=== PATIENT | female | born 1990 | race Caucasian/White ===

== ENCOUNTER 2018-01-14 20:20 | Emergency (ER) | payer OTHER ==
--- NOTE | 2018-01-14 21:13 | ER Document Report ---
ED Medical Screen (RME) - General Chief Complaint: Blood pressure issues Stated Complaint: BLOOD PRESSURE ISSUES Time Seen by Provider: 01/14/18 21:09 Mode of Arrival: Ambulatory Information source: Patient Notes: Patient is a 27-year-old female who presents with chief complaint of high blood pressure and elevated heart rate. Patient reports that over the last 2-3 weeks she has been having a heart rate ranging from the 120s-130s by her manual count. Patient also reports that over the last 2-3 days she has been having elevated blood pressure, patient reports blood pressure earlier today was 132/ 101. Patient denies any previous diagnosis of attention. Patient reports that she was seen yesterday at the emergency department at [facility] after she had a episode where she became confused. Patient reports that she had a fairly comprehensive workup done there and reports that they told her everything was normal. Patient returns to the emergency department today after feeling a fluttering in her chest. Patient reports past medical history of anxiety, depression and ADHD. Exam: Patient is alert and oriented 4. Sounds clear to auscultation bilaterally, no wheezes no rhonchi. Manual pulse is 128, heart sounds normal. I have greeted and performed a rapid initial assessment of this patient. A comprehensive ED assessment and evaluation of the patient, analysis of test results and completion of the medical decision making process will be conducted by additional ED providers. Dictation of this chart was performed using voice recognition software; therefore, there may be some unintended grammatical errors. TRAVEL OUTSIDE OF THE [place] IN LAST 30 DAYS: No - Related Data Allergies/Adverse Reactions: lidocaine Allergy (Verified 01/14/18 20:23) Physical Exam - Vital signs Vitals: Temp Pulse Resp BP Pulse Ox 98.3 F 125 H 18 122/84 100 01/14/18 20:28 01/14/18 20:28 01/14/18 20:28 01/14/18 20:28 01/14/18 20:28 Course - Vital Signs Vital signs: Temp Pulse Resp BP Pulse Ox 98.3 F 125 H 18 122/84 100 01/14/18 20:28 01/14/18 20:28 01/14/18 20:28 01/14/18 20:28 01/14/18 20:28
--- NOTE | 2018-01-14 21:44 | EKG REPORT ---
SEVERITY:- OTHERWISE NORMAL ECG - SINUS TACHYCARDIA : Confirmed by: Gianna Baker MD 14-Jan-2018 21:44:00
[2018-01-14 22:01] LABS: ABSOLUTE MONOCYTES (AUTO) 0.4 10^3/uL (0.1-1.4); ABSOLUTE NEUT (AUTO) 6.3 10^3/uL (1.7-8.2); BASOPHILS % (AUTO) 0.5 % (0-2); EOSINOPHILS % (AUTO) 0.2 % (0-6); HEMATOCRIT 41.3 % (36.0-47.0); HEMOGLOBIN 14.4 g/dL (12.0-15.5); LYMPHOCYTES % (AUTO) 30.8 % (13-45); MEAN CORPUSCULAR HEMOGLOBIN 32.3 pg (27.0-33.4); MEAN CORPUSCULAR HGB CONC 34.9 g/dL (32.0-36.0); MEAN CORPUSCULAR VOLUME 93 fl (80-97); MONOCYTES % (AUTO) 4.1 % (3-13); PLATELET COUNT 233 10^3/uL (150-450); RED BLOOD COUNT 4.45 10^6/uL (3.72-5.28); SEGMENTED NEUTROPHILS % (AUTO) 64.4 % (42-78); TOTAL CELLS COUNTED % (AUTO) 100 %; WHITE BLOOD COUNT 9.8 10^3/uL (4.0-10.5)
[2018-01-14 22:08] LABS: APPEARANCE,URINE SLIGHTLY-CLOUDY; BILIRUBIN,URINE NEGATIVE (NEGATIVE); COLOR,URINE YELLOW; GLUCOSE, URINE NEGATIVE (NEGATIVE); KETONES,URINE NEGATIVE (NEGATIVE); LEUKOCYTE ESTERASE,URINE NEGATIVE (NEGATIVE); NITRITE,URINE NEGATIVE (NEGATIVE); PROTEIN,URINE 30 mg/dL (NEGATIVE); URINE SPECIFIC GRAVITY 1.021
[2018-01-14 22:16] LABS: ALANINE AMINOTRANSFERASE 24 U/L (9-52); ALBUMIN 4.5 g/dL (3.5-5.0); ALKALINE PHOSPHATASE 76 U/L (38-126); ANION GAP 14 (5-19); ASPARTATE AMINO TRANSFERASE 29 U/L (14-36); BILIRUBIN,DIRECT 0.4 mg/dL (0.0-0.4); BILIRUBIN,TOTAL 0.5 mg/dL (0.2-1.3); BLOOD UREA NITROGEN 10 mg/dL (7-20); CALCIUM 9.6 mg/dL (8.4-10.2); CARBON DIOXIDE 26 mmol/L (22-30); CHLORIDE 106 mmol/L (98-107); GLUCOSE 84 mg/dL (75-110); POTASSIUM 3.5 mmol/L (3.6-5.0); SODIUM 146.4 mmol/L (137-145); TOTAL PROTEIN 7.8 g/dL (6.3-8.2)
--- NOTE | 2018-01-14 22:52 | ER Document Report ---
ED General - General Chief Complaint: Blood pressure issues Stated Complaint: BLOOD PRESSURE ISSUES Time Seen by Provider: 01/14/18 21:09 Mode of Arrival: Ambulatory Notes: Patient is 27-year-old female presents with complaint of multiple complaints. She has kept a log of her complaints. She says all her symptoms have been ongoing for 2-3 weeks. First complaint is of palpitations. She says she feels like her heart is racing. She also mentions that she has had high blood pressure. She says her blood pressure is been in the 120s and 130s systolically. The high she saw was 140/101. She said she went to her new primary care doctor about this and she says that he did not seem concerned. She also complains of headaches, weakness, she says that she feels that sometimes her vision is coming and going, she says sometimes her legs are giving out. She denies chest pain. She denies shortness of breath. She denies leg pain or swelling. Most recent road trip was 7 months ago in June. No surgeries in the last year. Patient says that she does have a history of anxiety and panic. She is on medications for this. She says she has been taking her medications. She takes clonazepam, Vyvanse, Buspar. She is followed by [facility] for her psychiatric care. Denies any recent changes in her medications. TRAVEL OUTSIDE OF THE [place] IN LAST 30 DAYS: No - Related Data Allergies/Adverse Reactions: lidocaine Allergy (Verified 01/14/18 20:23) Past Medical History - General Information source: Patient - Social History Smoking Status: Unknown if Ever Smoked Frequency of alcohol use: None Drug Abuse: None Family History: Reviewed & Not Pertinent Review of Systems - Review of Systems Notes: My Normal Review Basic REVIEW OF SYSTEMS: CONSTITUTIONAL : Denies fever, chills, or sweats. Denies recent illness. EENT: Denies eye, ear, throat, or mouth pain or symptoms. Denies nasal or sinus congestion. CARDIOVASCULAR: Denies chest pain. Has palpitations RESPIRATORY: Denies cough, cold, or chest congestion. Denies shortness of breath, difficulty breathing, or wheezing. GASTROINTESTINAL: Denies abdominal pain. Denies nausea, vomiting, or diarrhea. GENITOURINARY: Denies difficulty urinating, painful urination, burning, frequency, or blood in urine. MUSCULOSKELETAL: Denies neck or back pain or joint pain or swelling. SKIN: Denies rash or skin lesions. NEUROLOGICAL: Says she sometimes feels confused.. Mental headache. Denies weakness or paralysis or loss of use of either side. Denies problems with gait or speech. Denies sensory or motor loss. PSYCHIATRIC: Anxiety ALL OTHER SYSTEMS REVIEWED AND NEGATIVE. Physical Exam - Vital signs Vitals: Temp Pulse Resp BP Pulse Ox 98.3 F 125 H 18 122/84 100 01/14/18 20:28 01/14/18 20:28 01/14/18 20:28 01/14/18 20:28 01/14/18 20:28 - Notes Notes: General Appearance: Well nourished, alert, cooperative, no acute distress, no obvious discomfort. Anxious on exam. Vitals: reviewed, See vital signs table. Head: no swelling or tenderness to the head Eyes: PERRL, EOMI, Conjuctiva clear Mouth: No decreasd moisture Lungs: No wheezing, No rales, No rhonci, No accessory muscle use, good air exchange bilaterally. Heart: Tachycardiac rate, Regular rythm, No murmur, no rub Abdomen: Normal BS, soft, No rigidity, No abdominal tenderness, No guarding, no rebound, no abdominal masses, no organomegaly Extremities: strength 5/5 in all extremities, good pulses in all extremities, no swelling or tenderness in the extremities, no edema. Skin: warm, dry, appropriate color, no rash Neuro: speech clear, oriented x 3, normal affect, responds appropriately to questions. Renal nerves II through XII are intact. Distal sensation intact. Patient moves all extremities without difficulty. Psychiatric: Patient is very anxious. She has some pressured speech. When I go to listen to her heart she starts to hyperventilate. She did not do this before I started listening to her heart or examining her. Course - Re-evaluation Re-evalutation: 01/15/18 00:23 After the Ativan the patient says all her symptoms are now resolved and she looks and feels much improved. Her heart rate is now 79 bpm. Blood pressure is normal. I initially was unsure if her effects to be related to her antipsychotic medications or if this is truly just severe panic anxiety. And I suspect this most likely severe panic anxiety. Patient clonazepam bottle says to take 1 mg twice a day. She is only taken 1 dose of this medication today. She says that she takes only when she feels anxious. I told her that for now she should take it as prescribed as 1 mg twice a day. I will prescribe her 0.5 mg Ativan tablets to take only as needed if taking her scheduled clonazepam is not helping prevent her severe anxiety attacks. I encouraged her to call her psychiatrist in the morning to make a close follow-up appointment to discuss whether not she needs any further medication changes. Patient to return to ER if she has recurrence of her symptoms or feels unwell. Patient agrees with plan will be discharged home. Dictation of this chart was performed using voice recognition software; therefore, there may be some unintended grammatical errors. - Vital Signs Vital signs: Temp Pulse Resp BP Pulse Ox 98.4 F 125 H 20 117/98 H 100 01/15/18 00:44 01/14/18 20:28 01/15/18 00:44 01/15/18 00:44 01/15/18 00:44 - Laboratory Result Diagrams: 01/14/18 21:30 01/14/18 21:30 Laboratory results interpreted by me: 01/14/18 01/14/18 21:30 21:30 Sodium 146.4 H Potassium 3.5 L Urine Protein 30 H Urine Blood MODERATE H Urine Urobilinogen 2.0 H - EKG Interpretation by Me Additional EKG results interpreted by me: 01/14/18 23:06 EKG is reviewed and interpreted by me. EKG shows sinus tachycardia with rate of [address] segment elevation or depression. No ischemic T-wave inversions. GA interval, QRS duration, QTc intervals are within normal range. No old EKG available for comparison. Discharge - Discharge Clinical Impression: Anxiety, Heart palpitations Condition: Good Disposition: HOME, SELF-CARE Additional Instructions: Please take your Clonazepam twice a day as prescribed. If you feel as if your heart is racing or feel very anxious despite this than you can take one of the prescribed Ativan. Do not drive after taking the Ativan as it can make you sleepy. Please call your psychiatrist and make a close follow up appointment to discuss if any changes need to be made to your medications. Please return to the ER if you have worsening of your symptoms. Prescriptions: Lorazepam [Ativan 0.5 mg Tablet] 0.5 mg PO Q12 PRN #10 tab PRN Reason: Referrals: YOSELIN CARDONA, [Primary Care Provider] - Follow up as needed
[2018-01-14] MEDS ORDERED: NORMAL SALINE 1000 ML 1,000 ML IV ONE (23:02)
[2018-01-14] MEDS ORDERED: LORAZEPAM INJ 2 MG/1 ML VIAL IV ONE (23:02)
[2018-01-15 00:14] LABS: URINE AMPHETAMINES SCREEN UNCONFIRMED POSITIVE; URINE BARBITURATES SCREEN NEGATIVE; URINE BENZODIAZEPINES SCREEN NEGATIVE; URINE COCAINE SCREEN NEGATIVE; URINE MARIJUANA (THC) SCREEN NEGATIVE; URINE METHADONE SCREEN NEGATIVE; URINE PHENCYCLIDINE SCREEN NEGATIVE
[2018-01-15 00:46] VITALS: BP 117/98
== END 2018-01-15 00:46 | disposition home or self-care (01) ==
LOC: ER 20:20
DX: R00.2 Palpitations (principal); F41.9 Anxiety disorder, unspecified
CPT/HCPCS: 93005; 99284; 96361; 96374; 36415; 84443; 85025; 80053; 81001; 80307; 93010; J2060; J7030

== ENCOUNTER 2019-03-12 11:33 | Emergency (ER) | payer OTHER ==
--- NOTE | 2019-03-12 11:41 | ER Document Report ---
ED Medical Screen (RME) - General Chief Complaint: Abdominal Cramping Stated Complaint: ABDOMINAL CRAMPING Time Seen by Provider: 03/12/19 11:37 Primary Care Provider: YOSELIN CARDONA DO [Primary Care Provider] - Follow up as needed Mode of Arrival: Ambulatory Information source: Patient Notes: 28-year-old female presented to ED for complaint of pelvic pain and nausea no vomiting. She states she took a test and it is positive. Her last menstrual period was February 16. She is 3 para 2 7 of twins and one miscarriage. She states she is not having any bleeding at this time. I have greeted and performed a rapid initial assessment of this patient. A comprehensive ED assessment and evaluation of the patient, analysis of test results and completion of medical decision making process will be conducted by an additional ED providers. TRAVEL OUTSIDE OF THE [place] IN LAST 30 DAYS: No - Related Data Allergies/Adverse Reactions: lidocaine Allergy (Verified 03/12/19 11:35) Past Medical History Renal/ Medical History: Denies: Hx Peritoneal Dialysis Doctor's Discharge - Discharge Referrals: YOSELIN CARDONA DO [Primary Care Provider] - Follow up as needed
[2019-03-12 12:10] LABS: ABSOLUTE MONOCYTES (AUTO) 0.4 10^3/uL (0.1-1.4); ABSOLUTE NEUT (AUTO) 3.7 10^3/uL (1.7-8.2); BASOPHILS % (AUTO) 0.5 % (0-2); EOSINOPHILS % (AUTO) 0.7 % (0-6); HEMATOCRIT 44.9 % (36.0-47.0); HEMOGLOBIN 15.4 g/dL (12.0-15.5); LYMPHOCYTES % (AUTO) 32.2 % (13-45); MEAN CORPUSCULAR HEMOGLOBIN 31.7 pg (27.0-33.4); MEAN CORPUSCULAR HGB CONC 34.4 g/dL (32.0-36.0); MEAN CORPUSCULAR VOLUME 92 fl (80-97); MONOCYTES % (AUTO) 6.7 % (3-13); PLATELET COUNT 217 10^3/uL (150-450); RED BLOOD COUNT 4.87 10^6/uL (3.72-5.28); RED CELL DISTRIBUTION WIDTH 13.1 % (11.5-14.0); SEGMENTED NEUTROPHILS % (AUTO) 59.9 % (42-78); TOTAL CELLS COUNTED % (AUTO) 100 %; WHITE BLOOD COUNT 6.1 10^3/uL (4.0-10.5)
[2019-03-12 12:25] LABS: ALBUMIN 4.4 g/dL (3.5-5.0); ALKALINE PHOSPHATASE 86 U/L (38-126); ANION GAP 9 (5-19); ASPARTATE AMINO TRANSFERASE 26 U/L (14-36); BILIRUBIN,DIRECT 0.3 mg/dL (0.0-0.4); BILIRUBIN,TOTAL 0.6 mg/dL (0.2-1.3); BLOOD UREA NITROGEN 9 mg/dL (7-20); CALCIUM 9.7 mg/dL (8.4-10.2); CARBON DIOXIDE 23 mmol/L (22-30); CHLORIDE 107 mmol/L (98-107); GLUCOSE 114 mg/dL (75-110); POTASSIUM 4.3 mmol/L (3.6-5.0); TOTAL PROTEIN 7.8 g/dL (6.3-8.2)
--- NOTE | 2019-03-12 12:48 | ER Document Report ---
ED GI/ - General Chief Complaint: Abdominal Cramping Stated Complaint: ABDOMINAL CRAMPING Time Seen by Provider: 03/12/19 11:37 Primary Care Provider: [facility] [Provider Group] - Follow up as needed YOSELIN CARDONA DO [NO LOCAL MD] - Follow up as needed [facility] [NO LOCAL MD] - Follow up as needed Mode of Arrival: Ambulatory Information source: Patient Notes: Patient presents with lower pelvic cramping that started yesterday. Patient reports having a recent positive test. Patient reports some urinary frequency. No vaginal bleeding. TRAVEL OUTSIDE OF THE [place] IN LAST 30 DAYS: No - HPI Patient complains to provider of: Pelvic pain, Vaginal bleeding, Other - Urinary frequency Onset: Yesterday Timing/Duration: Gradual Quality of pain: Cramping Pain Level: 2 Location: Pelvis Vaginal bleeding (Compared to normal period): None Menstrual period history: Sexual history: Active, Unprotected intercourse Associated symptoms: Urinary frequency. denies: Dysuria, Fever, Nausea, Urinary hesitancy, Urinary retention, Vomiting Exacerbated by: Denies Relieved by: Denies Similar symptoms previously: No Recently seen / treated by doctor: No - Related Data Allergies/Adverse Reactions: lidocaine Allergy (Verified 03/12/19 11:40) Past Medical History - General Information source: Patient - Social History Smoking Status: Never Smoker Frequency of alcohol use: Occasional Drug Abuse: None Occupation: [employer] Lives with: Family Family History: Reviewed & Not Pertinent Patient has suicidal ideation: No Patient has homicidal ideation: No Renal/ Medical History: Denies: Hx Peritoneal Dialysis Psychiatric Medical History: Reports: Hx Anxiety, Hx Attention Deficit Hyperactivity Disorder, Hx Depression Past Surgical History: Reports: Hx Section Review of Systems - Review of Systems Constitutional: No symptoms reported. denies: Fever, Recent illness EENT: No symptoms reported Cardiovascular: No symptoms reported Respiratory: No symptoms reported. denies: Cough Gastrointestinal: Abdominal pain. denies: Nausea, Vomiting Genitourinary: Frequency. denies: Dysuria Female Genitourinary: . denies: Vaginal bleeding Musculoskeletal: No symptoms reported. denies: Back pain Skin: No symptoms reported Hematologic/Lymphatic: No symptoms reported Neurological/Psychological: No symptoms reported Physical Exam - Vital signs Vitals: Temp Pulse Resp BP Pulse Ox 98.3 F 92 18 124/79 99 03/12/19 12:49 03/12/19 12:49 03/12/19 12:49 03/12/19 12:49 03/12/19 12:49 - General General appearance: Appears well, Alert In distress: None - HEENT Head: Normocephalic, Atraumatic Eyes: Normal Conjunctiva: Normal Nasal: Normal Mouth/Lips: Normal Mucous membranes: Normal Neck: Normal, Supple. No: Lymphadenopathy - Respiratory Respiratory status: No respiratory distress Chest status: Nontender Breath sounds: Normal. No: Rales, Rhonchi, Stridor, Wheezing Chest palpation: Normal - Cardiovascular Rhythm: Regular Heart sounds: S1 appreciated, S2 appreciated Murmur: No - Abdominal Inspection: Obese Distension: No distension Bowel sounds: Normal Tenderness: Tender - lower pelvic Organomegaly: No organomegaly - Back Back: Normal, Nontender. No: CVA tenderness - Extremities General upper extremity: Normal inspection, Normal ROM General lower extremity: Normal inspection, Normal ROM - Neurological Neuro grossly intact: Yes Cognition: Normal Olar Coma Scale Eye Opening: Spontaneous Gianni Coma Scale Verbal: Oriented Gianni Coma Scale Motor: Obeys Commands Gianni Coma Scale Total: 15 - Psychological Associated symptoms: Normal affect, Normal mood - Skin Skin Temperature: Warm Skin Moisture: Dry Skin Color: Normal Course - Re-evaluation Re-evalutation: 03/12/19 14:34 Patient with quantitative hCG of 24, no intrauterine noted on ultrasound although quantitative hCG is too low to suspect any findings at this time. Will give patient outpatient orders for repeat quantitative hCG testing and encourage her to follow-up with an [facility] to further evaluate status at this time. - Vital Signs Vital signs: Temp Pulse Resp BP Pulse Ox 98.9 F 95 15 114/80 98 03/12/19 14:46 03/12/19 14:46 03/12/19 14:46 03/12/19 14:46 03/12/19 14:46 - Laboratory Result Diagrams: 03/12/19 11:53 03/12/19 11:53 Laboratory results interpreted by me: 03/12/19 03/12/19 11:53 12:49 Glucose 114 H Beta HCG, Quant 24.92 H Urine Protein 30 H Urine Blood MODERATE H 03/12/19 14:34 Labs- Entire Visit 09/06/19 09/06/19 09/06/19 11:53 11:53 12:49 WBC 6.1 RBC 4.87 Hgb 15.4 Hct 44.9 MCV 92 MCH 31.7 MCHC 34.4 RDW 13.1 Plt Count 217 Lymph % (Auto) 32.2 [place] % (Auto) 6.7 Eos % (Auto) 0.7 Baso % (Auto) 0.5 Absolute Neuts (auto) 3.7 Absolute Lymphs (auto) 2.0 Absolute Monos (auto) 0.4 Absolute Eos (auto) 0.0 Absolute Basos (auto) 0.0 Seg Neutrophils % 59.9 Sodium 139.2 Potassium 4.3 Chloride 107 Carbon Dioxide 23 Anion Gap 9 BUN 9 Creatinine 0.70 Est GFR ( Amer) > 60 Est GFR (MDRD) Non-Af > 60 Glucose 114 H Calcium 9.7 Total Bilirubin 0.6 Direct Bilirubin 0.3 Neonat Total Bilirubin Not Reportable Neonat Direct Bilirubin Not Reportable Neonat Indirect Bili Not Reportable AST 26 ALT 33 Alkaline Phosphatase 86 Total Protein 7.8 Albumin 4.4 Beta HCG, Quant 24.92 H Total Beta HCG POSITIVE Urine Color YELLOW Urine Appearance CLEAR Urine pH 6.0 Ur Specific [place] 1.016 Urine Protein 30 H Urine Glucose (UA) NEGATIVE Urine Ketones NEGATIVE Urine Blood MODERATE H Urine Nitrite NEGATIVE Urine Bilirubin NEGATIVE Urine Urobilinogen NEGATIVE Ur Leukocyte Esterase NEGATIVE Urine WBC (Auto) 1 Urine RBC (Auto) 9 Squamous Epi Cells Auto 3 Urine Mucus (Auto) RARE Urine Ascorbic Acid NEGATIVE - Diagnostic Test Radiology reviewed: Reports reviewed Discharge - Discharge Clinical Impression: test positive, Pelvic cramping Condition: Stable Disposition: HOME, SELF-CARE Instructions: Ectopic Precaution ([facility]), ([facility]) Additional Instructions: Return immediately for any new or worsening symptoms Followup with your primary care provider, call tomorrow to make a followup appointment Follow-up with the lab for repeat quantitative hCG testing in 48 hours Follow-up with an [facility] provider for further evaluation of your status at this time. You will need a repeat ultrasound at a later date Forms: Follow-Up Laboratory Testing Referrals: YOSELIN CARDONA DO [NO LOCAL MD] - Follow up as needed [facility] [Provider Group] - Follow up as needed [facility] [NO LOCAL MD] - Follow up as needed
[2019-03-12 13:02] LABS: APPEARANCE,URINE CLEAR; BILIRUBIN,URINE NEGATIVE (NEGATIVE); COLOR,URINE YELLOW; GLUCOSE, URINE NEGATIVE (NEGATIVE); KETONES,URINE NEGATIVE (NEGATIVE); LEUKOCYTE ESTERASE,URINE NEGATIVE (NEGATIVE); NITRITE,URINE NEGATIVE (NEGATIVE); PROTEIN,URINE 30 mg/dL (NEGATIVE); URINE SPECIFIC GRAVITY 1.016; UROBILINOGEN,URINE NEGATIVE mg/dL (<2.0)
--- NOTE | 2019-03-12 14:28 | RADIOLOGY REPORT (SQ) ---
EXAM DESCRIPTION: U/S OB TRANSVAGINAL W/O DOP COMPLETED DATE/TIME: 03/12/2019 2:13 pm REASON FOR STUDY: pelvic pain COMPARISON: None. TECHNIQUE: Transvaginal static and realtime grayscale images acquired of the pelvis. Additional wilbert cted spectral and color Doppler images recorded. All images stored on PACs. [facility] CLINICAL DATES: LMP 02/16/2019. 3 weeks 2 days. LIMITATIONS: None. FINDINGS: There is no intrauterine gestational sac or pole. UTERUS: No masses. No anomalies. CERVICAL LENGTH: 1.6 cm. Closed. RIGHT ADNEXA: Normal ovary with normal vascular flow. 1.9 x 1.7 x 1.6 cm. No adnexal free fluid. No adnexal masses. LEFT ADNEXA: Ovary not seen. No adnexal free fluid. No adnexal masses. FREE FLUID: None. OTHER: No other significant finding. IMPRESSION: No intrauterine gestation is identified at this time. Follow-up as clinically indicated . TECHNICAL DOCUMENTATION: JOB ID: [id number] [employer]- All Rights Reserved rev-11/21 Reading location - IP/workstation name: [email or web address]
[2019-03-12 14:56] VITALS: BP 114/80
== END 2019-03-12 14:56 | disposition home or self-care (01) ==
LOC: ER 11:33
DX: R10.2 Pelvic and perineal pain (principal); R10.9 Unspecified abdominal pain; Z32.01 Encounter for pregnancy test, result positive
CPT/HCPCS: 36415; 76817; 80053; 81001; 84702; 85025; 87086; 99284

== ENCOUNTER → 2019-03-14 | Outpatient (CLI) | payer OTHER | LOC: LAB 08:12 | PROVIDERS: ATTEND Nurse Practitioner Family | DX: R10.9 Unspecified abdominal pain (principal) | CPT/HCPCS: 36415; 84702 ==